=== PATIENT | male | born 1990 | race Hispanic/Latino ===

== ENCOUNTER 2020-02-11 15:18 | Emergency (ER) | payer BC ==
[~2020-02-11 15:18] MED LIST: Iopamidol-370 76% 500 ML 1 ML ONE
[2020-02-11 16:39] LABS: ALT (SGPT) 29 U/L (8-55); AST (SGOT) 21 U/L (5-34); Albumin 4.1 g/dL (3.5-5.0); Alkaline Phosphatase 118 U/L (40-110); Anion Gap 13 mmol/L (10-20); BUN (Urea Nitrogen) 18 mg/dL (8.9-20.6); Bilirubin, Total 0.6 mg/dL (0.2-1.2); CK (CPK) 189 U/L (30-200); Calc. Creatinine Clearance 0 mL/min (70-130); Calcium 9.4 mg/dL (7.8-10.44); Carbon Dioxide 25 mmol/L (22-29); Chloride 99 mmol/L (98-107); Estimated GFR-MDRD 78; Globulin 3.8 g/dL (2.4-3.5); Glucose 329 mg/dL (70-105); Protein, Total 7.9 g/dL (6.0-8.3); Sodium 133 mmol/L (136-145)
--- NOTE | 2020-02-11 17:23 | CT ---
ABDOMEN CT WITH CONTRAST PELVIC CT WITH CONTRAST: History: Abdominal pain. FINDINGS: ABDOMEN CT: Lung bases are clear. Normal heart size. No significant pericardial fluid. Visualized aorta has a nor mal caliber. No periaortic fat stranding. Portal vein is patent. Contracted gallbladder, likely due to a nonfasting state. Questionable choleli thiasis. Motion degradation limits evaluations. Appropriate enhancement of the liver. Spleen, pancreas, and adrenal glands have appropriate attenuati on and enhancement. Decreased visceral fat does limit evaluation for inflammatory change. No gastrohepatic, retrocrural o r periportal lymphadenopathy. No mesenteric mass, free air or free fluid. There are mildly enlarged lymph nodes in the right lower quadrant which are nonspecific. A large roofing sales representative lymph node measures 0.5 x 1.2 cm. Limited evaluation of the alimentary canal by the lack of oral contrast. There is no evidence of a sm all bowel obstruction. Ileocecal junction has a normal appearance. Normal caliber air filled appendix . Scattered fecal material in a nondistended, nondilated colon. Occasional diverticulum in the sigmoi d colon. No diverticulitis. Anterior abdominal wall is intact. Symmetric enhancement of the kidneys. Bilaterally, no obstructive uropathy. PELVIC CT: No abnormalities with regards to the urinary bladder. No pelvic mass, lymphadenopathy, free air, or f ree fluid. There are no lytic or blastic lesions of the osseous structures. IMPRESSION: 1. No acute abnormality in the abdomen or pelvis. 2. Nonspecific mildly enlarged mesenteric lymph nodes. Correlate for mesenteric lymphadenitis. POS: PPP
[2020-02-11] MEDS ORDERED: Ondansetron PF 4 MG/2 ML Vial ONE (17:25)
[2020-02-11 17:51] LABS: Bilirubin Negative (Negative); Blood, Urine Negative (Negative); Clarity Clear (Clear); Glucose, Urine (Dipstick) Greater than 1000 mg/dL (Negative); Leukocyte Negative Leu/uL (Negative); Nitrite Negative (Negative); Protein, Urine (Dipstick) Negative (Neg-Trace); Urobilinogen Normal mg/dL (Less than 2)
[2020-02-11] MEDS ORDERED: Ketorolac Tromethamine 30 MG/ML VIAL ONE (19:17)
== END 2020-02-11 19:55 | disposition home or self-care (01) ==
LOC: ERS 15:18
DX: I88.0 Nonspecific mesenteric lymphadenitis (principal); E11.9 Type 2 diabetes mellitus without complications
CPT/HCPCS: 36415; 74177; 80053; 81003; 82550; 96361; 96374; J1885; J2405; Q9967

== ENCOUNTER 2021-08-27 12:12 | Outpatient (CLI) | payer BC | END 2021-08-27 12:13 | disposition home or self-care (01) | LOC: SCSRAD 12:12 | PROVIDERS: ATTEND Physician Assistant | DX: E11.621 Type 2 diabetes mellitus with foot ulcer (principal); L97.529 Non-pressure chronic ulcer of other part of left foot with unspecified severity ==